=== PATIENT | male | born 1990 | race Caucasian/White ===

== ENCOUNTER 2017-12-08 15:31 | Emergency (ER) | payer SELFPAY ==
[~2017-12-08] VITALS: Ht 172.7 cm; Wt 68.0 kg
== END 2017-12-08 17:01 | disposition home or self-care (01) ==
LOC: ER 15:31
DX: S80.01XA Contusion of right knee, initial encounter (principal); V28.4XXA Motorcycle driver injured in noncollision transport accident in traffic accident, initial encounter; F17.200 Nicotine dependence, unspecified, uncomplicated
CPT/HCPCS: 99281

== ENCOUNTER 2018-03-28 03:52 | Emergency (ER) | payer MEDICAID ==
[~2018-03-28] VITALS: Ht 167.6 cm; Wt 68.0 kg
[2018-03-28] MEDS ORDERED: PENVK500 PO (04:16)
[2018-03-28] MEDS ORDERED: IBUP600 PO (04:16)
== END 2018-03-28 04:30 | disposition home or self-care (01) ==
LOC: ER 03:52
DX: K02.9 Dental caries, unspecified (principal); K03.81 Cracked tooth; F17.210 Nicotine dependence, cigarettes, uncomplicated
CPT/HCPCS: 99283

== ENCOUNTER 2019-05-23 00:25 | Emergency (ER) | payer SELFPAY ==
[~2019-05-23] VITALS: Ht 167.6 cm; Wt 65.8 kg
[~2019-05-23 00:25] MED LIST: IBUP600 PO; PENVK500 PO
[2019-05-23] MEDS ORDERED: IBUP600 PO (01:02)
[2019-05-23] MEDS ORDERED: PENVK500 PO (01:02)
== END 2019-05-23 01:10 | disposition home or self-care (01) ==
LOC: ER 00:25
DX: K02.9 Dental caries, unspecified (principal); F17.210 Nicotine dependence, cigarettes, uncomplicated
CPT/HCPCS: 99282

== ENCOUNTER 2020-11-16 14:07 | Emergency (ER) | payer SELFPAY ==
[~2020-11-16] VITALS: Ht 167.6 cm; Wt 77.1 kg
[2020-11-16] MEDS ORDERED: TRAM50 PO (15:19)
[2020-11-16] MEDS ORDERED: Amoxicillin500 MG PO (15:19)
== END 2020-11-16 15:26 | disposition home or self-care (01) ==
LOC: ER 14:07
DX: K02.9 Dental caries, unspecified (principal); F17.210 Nicotine dependence, cigarettes, uncomplicated
CPT/HCPCS: 99282

== ENCOUNTER 2023-08-27 15:50 | Emergency (ER) | payer OTHER ==
[~2023-08-27] VITALS: Ht 167.6 cm; Wt 68.0 kg
[~2023-08-27 15:50] MED LIST changes: +AMOCLA875 PO; +Amoxicillin500 MG PO; +Cleocin HCl300 MG PO; +IBUP400 PO; +Percocet 5-3251 EACH PO; +TRAM50 PO; +Ultram50 MG PO
[2023-08-27 15:57] VITALS: BP 158/108
== END 2023-08-27 16:03 | disposition home or self-care (01) ==
LOC: ER 15:50
DX: S41.152D Open bite of left upper arm, subsequent encounter (principal); S41.151D Open bite of right upper arm, subsequent encounter; W54.0XXD Bitten by dog, subsequent encounter
CPT/HCPCS: J2310